=== PATIENT | female | born 1950 | race Caucasian/White ===

== ENCOUNTER 2024-02-06 16:19 | Emergency (ER) | payer OTHER, MEDICARE ==
[2024-02-06] MEDS: Lidocaine 1% 5 ML VIAL INJECT ONE (16:51)
[2024-02-06] MEDS: Bacitracin/Neomycin/Polymyxin B Oint 0.9 GM U/D Packet TOP ONE (16:52)
== END 2024-02-06 17:29 | disposition home or self-care (01) ==
LOC: KA.ED 16:19
DX: S61.217A Laceration without foreign body of left little finger without damage to nail, initial encounter (principal); Z02.6 Encounter for examination for insurance purposes; I10 Essential (primary) hypertension; E78.00 Pure hypercholesterolemia, unspecified; E66.9 Obesity, unspecified; E11.9 Type 2 diabetes mellitus without complications; Z68.30 Body mass index [BMI] 30.0-30.9, adult; Z88.5 Allergy status to narcotic agent; Z91.018 Allergy to other foods; Z90.49 Acquired absence of other specified parts of digestive tract; Z87.891 Personal history of nicotine dependence; W26.0XXA Contact with knife, initial encounter; Y99.0 Civilian activity done for income or pay; Y92.89 Other specified places as the place of occurrence of the external cause
CPT/HCPCS: 12001; 99282; J3490